=== PATIENT | male | born 1960 | race Caucasian/White ===

== ENCOUNTER 2017-05-29 07:45 | Inpatient (IN) | payer MEDICAID ==
[~2017-05-29] VITALS: Ht 182.9 cm; Wt 167.8 kg
[2017-05-29] VITALS (13 sets, daily range): BP systolic 148–187; BP diastolic 101–120; BMI 50.3
--- NOTE | ~2017-05-29 | DS ---
PATIENT:HEIDI FOSTER II :58 MEDICAL RECORD: [id number] DISCHARGE SUMMARY ADMISSION DATE: 05/29/17 DISCHARGE DATE: 05/31/17 DATE OF SERVICE: 05/31/2017 DIAGNOSES: 1. Congestive heart failure, chronic systolic dysfunction. 2. Cardiomyopathy, drug induced. 3. Hypertension. HOSPITAL COURSE: Mr. Foster presents with acute withdrawal from meth as well as shortness of breath and congestive heart failure and found to have an ejection fraction of 40% with mild dilated cardiomyopathy. His heart failure symptomatology cleared with IV Lasix. He was helped through his withdrawal with IV Haldol and IV Ativan. He had resolution of this. Discharged home with the addition of Coreg 25 mg b.i.d. to his medical regimen. We will follow up with [facility] in 1 month. TRANSINT:[id number] Voice Confirmation ID: [id number] DOCUMENT ID: [id number] RAFAEL MOCTEZUMA MD CC: [id number] DICTATION DATE: 05/31/17 1128 SPARKER AND PATCHER: 06/01/17 0356 DIS IN 05/31/17 [id number] [place] [address]
[2017-05-29 08:30] LABS: BASOPHILS 0.3 % (0-2); EOSINOPHILS 1.3 % (0-7); HEMATOCRIT 43.3 % (42.0-54.0); HEMOGLOBIN 14.2 g/dL (13.5-17.5); IMMATURE GRANULOCYTES 0.3 % (0-5); MCH 29.8 pg (26.0-34.0); MCHC 32.8 g/dL (31.0-37.0); MCV 90.8 fL (80.0-100.0); MEAN PLATELET VOLUME 11.4 fL (7.4-10.4); MONOCYTES 9.4 % (2-11); NEUTROPHILS 75.7 % (40-80); PLATELET COUNT 180 10x3/uL (130-400); RBC 4.77 10x6/uL (4.20-6.10); RDW 14.8 % (11.5-14.5); WBC 7.9 10x3/uL (4.8-10.8)
[2017-05-29 08:42] LABS: ALBUMIN 3.4 g/dL (3.4-5.0); ALKALINE PHOSPHATASE 83 U/L (46-116); ALT (SGPT) 100 U/L (10-68); BILIRUBIN - TOTAL 0.78 mg/dL (0.2-1.3); CALC OSMOLALITY 294 mosm/kg (275-300); CALCIUM 8.4 mg/dL (8.5-10.1); CARBON DIOXIDE 26.4 mmol/L (21.0-32.0); CHLORIDE - SERUM 105 mmol/L (98-107); CREATININE - SERUM 1.8 mg/dL (0.6-1.3); GLUCOSE 159 mg/dL (74-106); PROTEIN - SERUM 6.7 g/dL (6.4-8.2); SODIUM 141 mmol/L (136-145); UREA NITROGEN 44 mg/dL (7-18); eGFR NON AFRICAN AMERICAN 41 mL/min (90-120)
[2017-05-29 08:57] LABS: CKMB 19.3 U/L (0.0-3.6); PRO BNP 6593 pg/mL (0-125)
[2017-05-29 09:15] LABS: UDS - AMPHET POSITIVE QUAL (NEGATIVE); UDS - BARB NEGATIVE QUAL (NEGATIVE); UDS - BENZO NEGATIVE QUAL (NEGATIVE); UDS - COCAINE NEGATIVE QUAL (NEGATIVE); UDS - METH NEGATIVE QUAL (NEGATIVE); UDS - OPIATE NEGATIVE QUAL (NEGATIVE); UDS - PCP NEGATIVE QUAL (NEGATIVE); UDS - THC POSITIVE QUAL (NEGATIVE)
[2017-05-29 09:44] LABS: APPEARANCE SLT CLOUDY (CLEAR); BILIRUBIN NEGATIVE (NEGATIVE); COLOR YELLOW (YELLOW); GLUCOSE NEGATIVE (NEGATIVE); KETONE NEGATIVE (NEGATIVE); NITRITE NEGATIVE (NEGATIVE); PROTEIN 3+ mg/dL (NEGATIVE); UROBILINOGEN NORMAL (NORMAL)
[2017-05-29 09:45] LABS: AMORPHOUS SEDIMENT >1+ /lpf (NONE SEEN); BACTERIA MODERATE /hpf (NONE SEEN); EPITHELIAL CELLS 0-5 /hpf (0-5); GRANULAR CAST 0-5 /lpf (NONE SEEN); LEUKOCYTE ESTERASE TRACE (NEGATIVE); MUCUS <1+ /lpf (NONE SEEN); WHITE CELLS - URINE 0-5 /hpf (0-5)
--- NOTE | 2017-05-29 11:16 | NUR ---
TRANSFER FROM ER BY STRETCHER. CALL LIGHT IN REACH. WILL CONT. PLAN OF CARE.
--- NOTE | 2017-05-29 11:43 | NUR ---
RN CALLED ME TO THE ROOM TO ASSESS PT. PT THRASHING ABOUT IN BED AND SCREAMING. MARICRUZ ALARM AND BUILT IN BED ALARM ON. DR. MOCTEZUMA NOTIFIED AND ORDERS RECEIVED. ORDER RECEIVED TO TRANSFER TO ICU. HOUSE KIRSTEN NOTIFIED.
--- NOTE | 2017-05-29 12:00 | NUR ---
56 Y.O. MALE RECEIVED FROM Helpr. PATIENT IS OBTUNDED, COMBATIVE, AND RESTLESS. FLAILING ARMS ABOUT. PATIENT YELLS OUT AT TIMES, UNCOPREHENSIBLE SOUND. IV NOTED IN LEFT HAND WITH NS INFUSING. PATIENT HAS SNORING RESPIRATIONS AT TIMES. SR UP X4.
--- NOTE | 2017-05-29 12:13 | NUR ---
UNABLE TO OBTAIN HISTORY FROM PT. EVERYTIME A QUESTION IS ANSWERED, PT SCREAMS OUT. REPORT GIVEN TO ROSENDO IN ICU. AT PRESENT, PT IS QUIET DUE TO IV ATIVAN GIVEN. TRANSFERRED TO ICU.
--- NOTE | 2017-05-29 12:22 | NUR ---
TRANSFERED TO ICU BY BED.
--- NOTE | 2017-05-29 12:50 | NUR ---
DR. MOCTEZUMA HERE IN TO SEE PATIENT AND SPOKE WITH HIS FATHER. NEW ORDERS RECEIVED.
--- NOTE | 2017-05-29 13:06 | NUR ---
HALDOL GIVEN FOR COMBATIVENESS AND RESTLESSNESS.
--- NOTE | 2017-05-29 16:44 | NUR ---
PATIENT IS MORE ALERT AND COOPERATIVE. PATIENT DOES NOT REMEMBER WHAT HAPPENED OR HOW HE GOT HERE. PATIENT IS PLEASANT AND AGREES TO STAY IN THE BED.
--- NOTE | 2017-05-29 17:51 | NUR ---
PATIENT HAS MOTTLING NOTED IN R LOWER EXTREMTY. PATEINT DOES HAVE EQUAL PEDAL PULSES PRESENT. DR. GIRON CONTACTED AND NEW ORDERS RECEIVED.
[2017-05-29 19:15] LABS: ANION GAP 10.5 mmol/L (8-16); CALCIUM 8.6 mg/dL (8.5-10.1); CARBON DIOXIDE 30.9 mmol/L (21.0-32.0); CREATININE - SERUM 1.5 mg/dL (0.6-1.3); POTASSIUM - SERUM 3.4 mmol/L (3.5-5.1)
--- NOTE | 2017-05-29 19:15 | NUR ---
REPORT RECIEVED. ASSESSMENT COMPLETED. SEE FLOW SHEET FOR DETAILS. PT POSITIONED FOR COMFORT, WILL CONTINUE TO MONITOR.
--- NOTE | 2017-05-29 21:00 | NUR ---
FAMILY AT BEDSIDE, UPDATE GIVEN. PT ASKED FOR A DIET COKE. REVIEWED DIET ORDER AND GAVE HIM A DIET COKE. PT POSITIONED FOR COMFORT WILL CONTINUE TO MONITOR.
--- NOTE | 2017-05-29 23:00 | NUR ---
REASSESSMENT COMPLETED. PT POSITIONED FOR COMFORT WILL CONTINUE TO MONITIOR.
--- NOTE | 2017-05-29 23:15 | NUR ---
CALLED AND STARTED HOME MEDS FOR BP CURRENTLY AT 164/111.
[2017-05-30] VITALS (24 sets, daily range): BP systolic 111–179; BP diastolic 84–133; Ht 182.9 cm; Wt 167.8 kg
--- NOTE | 2017-05-30 01:00 | NUR ---
PT APPEARS TO BE SLEEPING. DENIES ANY NEEDS. WILL CONTINUE TO MONITOR.
--- NOTE | 2017-05-30 03:00 | NUR ---
REASSESSMENT COMPLETED. NO ACUTE CHANGES AT THIS TIME. PT POSITIONED FOR COMFORT, WILL CONTINUE TO MONITOR.
--- NOTE | 2017-05-30 05:00 | NUR ---
PT RESTING DENIES ANY NEEDS. DENIED A BATH. POSITIONED FOR COMFORT WILL CONTINUE TO MONITOR.
--- NOTE | 2017-05-30 07:00 | NUR ---
REC'D REPORT AND RESUMED CARE, AAO, VSS, DENIES PAIN, ASSESSMENT COMPLETE PER FLOWSHEET, CALL LIGHT IN REACH, NO NEEDS AT THIS TIME
--- NOTE | 2017-05-30 07:30 | NUR ---
BREAKFAST TRAY TO BEDSIDE, INDEPENDENT WITH SET UP AND EATING
--- NOTE | 2017-05-30 08:45 | NUR ---
AM MEDS GIVEN WITHOUT DIFFICULTY
--- NOTE | 2017-05-30 09:00 | NUR ---
FAMILY AT BEDSIDE, STATUS UPDATED, SISTER WORRIED THAT PATIENT WILL WANT TO LEAVE HOSPITAL BEFORE GIVEN FULL TREATMENT, NO SIGNS OF THIS AT THIS TIME
[2017-05-30 09:57] LABS: ANION GAP 8.8 mmol/L (8-16); CALCIUM 8.2 mg/dL (8.5-10.1); CARBON DIOXIDE 31.4 mmol/L (21.0-32.0); CREATININE - SERUM 1.4 mg/dL (0.6-1.3); MAGNESIUM - SERUM 1.8 mg/dL (1.8-2.4)
[2017-05-30 09:58] LABS: POTASSIUM - SERUM 4.2 mmol/L (3.5-5.1)
[2017-05-30 10:12] LABS: BASOPHILS 0.6 % (0-2); EOSINOPHILS 2.6 % (0-7); HEMATOCRIT 43.9 % (42.0-54.0); HEMOGLOBIN 14.1 g/dL (13.5-17.5); IMMATURE GRANULOCYTES 0.6 % (0-5); LYMPHOCYTES 15.5 % (15-50); MCH 29.4 pg (26.0-34.0); MCHC 32.1 g/dL (31.0-37.0); MCV 91.6 fL (80.0-100.0); MEAN PLATELET VOLUME 12.3 fL (7.4-10.4); MONOCYTES 9.8 % (2-11); NEUTROPHILS 70.9 % (40-80); PLATELET COUNT 171 10x3/uL (130-400); RBC 4.79 10x6/uL (4.20-6.10); RDW 15.2 % (11.5-14.5)
--- NOTE | 2017-05-30 10:22 | NUR ---
OOB TO CHAIR WITH MINIMAL ASSIST, DYSPNEA ON EXERTION
--- NOTE | 2017-05-30 11:19 | NUR ---
* Is the patient Alert and Oriented? Yes 0 * How many steps to enter\exit or inside your home? 2 0 * PCP ASPHALT COATER with Dr. Nathan 0 * Pharmacy [facility] in [place] 0 * Preadmission Environment Home Alone 0 * ADLs Independent 0 * List name and contact numbers for known caregivers / representatives who currently or will assist patient after discharge: Father - Eleno Presley [phone] 0 * Can the patient safely return to the preadmission environment? Yes 0 * Has this patient been hospitalized within the prior 30 days at any hospital? No Patient Name: HEIDI FOSTER Admission Status: ER Accout number: [id number] Admission Date: 05-29-2017 : 1960 Admission Diagnosis:SHORTNESS OF BREATH Attending: YOUNG MOCTEZUMA Current LOS: 1 Planned Disposition: Home Primary Insurance: MEDICAID [place] Discharge Planning Comments: CM met with patient to assess dc plans/needs. Patient states he lives alone and is independent with all ADL's & IADL's. He states his dad lives next door to him and will drive him home at discharge. He denies having any DME or home health services. At dc, he states he will return home. Discussed HH services - declines at this time. CM will follow & assist as needed. Asphalt Coater: Debby Leo
--- NOTE | 2017-05-30 11:29 | NUR ---
* Is the patient Alert and Oriented? Yes 0 * How many steps to enter\exit or inside your home? 2 0 * PCP STEWARDING SUPERVISOR with Dr. Nathan 0 * Pharmacy [facility] in [place] 0 * Preadmission Environment Home Alone 0 * ADLs Independent 0 * List name and contact numbers for known caregivers / representatives who currently or will assist patient after discharge: Father - Eleno Presley [phone] 0 * Can the patient safely return to the preadmission environment? Yes 0 * Has this patient been hospitalized within the prior 30 days at any hospital? No Patient Name: HEIDI FOSTER Admission Status: ER Accout number: [id number] Admission Date: 05-29-2017 : 1960 Admission Diagnosis:SHORTNESS OF BREATH Attending: YOUNG MOCTEZUMA Current LOS: 1 Planned Disposition: Home Primary Insurance: MEDICAID [place] Discharge Planning Comments: CM met with patient to assess dc plans/needs. Patient states he lives alone and is independent with all ADL's & IADL's. He states his dad lives next door to him and will drive him home at discharge. He denies having any DME or home health services. At dc, he states he will return home. Discussed HH services - declines at this time. CM will follow & assist as needed. Conference Concierge: Debby Leo
--- NOTE | 2017-05-30 12:00 | NUR ---
LUNCH TRYA TO BEDSIDE, INDEPENDENT WITH SET UP AND EATING
--- NOTE | 2017-05-30 13:30 | NUR ---
FEELING TIRED, BTB WITH STATNDBY ASSIST, SELF REPOSITIONS, CALL LIGHT IN REACH, VOICES NO NEEDS AT THIS TIME
--- NOTE | 2017-05-30 15:00 | NUR ---
SLEEPING WITH NO SIGNS OF DISTRESS, VSS, WILL CONTINUE WITH POC
--- NOTE | 2017-05-30 17:30 | NUR ---
BARLOW DC'D PER ORDER, BLOODY DRAINAGE TO BAG, IVF DC'D PER ORDER, SL, EATING DINNER WITH NO SIGNS OF DISTRESS, VSS
[2017-05-30] MEDS ORDERED: K-TAB10 MEQ PO (18:07)
[2017-05-30] MEDS ORDERED: LOPRESSOR25 MG PO (18:08)
[2017-05-30] MEDS ORDERED: FUROSEMIDE40 MG PO (18:09)
[2017-05-30] MEDS ORDERED: MUPIROCIN22 GM TOPICAL (18:10)
--- NOTE | 2017-05-30 19:30 | NUR ---
PT CONFUSED X3, OUT OF BED, UNSTADY GAIT, INCONTINENT. BATH GIVEN. LINEN AND GOWN CHANGED. ASSISTED TO BED. REORIENTED TO PLACE, TIME AND SITUATION. VERBALIZES UNDERSTANTDING AT THIS TIME. BED ALARM ON. CALL LIGHT IN REACH. BED IN LOW POSITIONED AND LOCKED. HOB UP. SIDE RAILS UP. WILL CONT TO MONITOR.
--- NOTE | 2017-05-30 20:10 | NUR ---
ASSISTED TO BSC. VOIDS WITHOUT DIFFIC. AYANA CARE PROVIDED. BACK IN BED. REPOSITIONED SELF IN BED. CALL LIGHT IN REACH. PROVIDED NURISHEMENT PER REQUEST.BST IN REACH. CPOC.
--- NOTE | 2017-05-30 21:00 | NUR ---
ASSISTED TO BSC. VOIDS WITHOUT DIFFIC. AYANA CARE PROVIDED. BACK TO BED. REPOSITIONED SELF IN BED. CALL LIGHT IN REACH. CPOC.
--- NOTE | 2017-05-30 23:00 | NUR ---
REASSESSMENT COMPLETED. SEE FLOW SHEETS FOR ALL FINDINGS. NO ACUTE SIGNS OF DISTRESS NOTED. VSS. CALL LIGHT IN REACH. CPOC.
[2017-05-31] VITALS (9 sets, daily range): BP systolic 120–168; BP diastolic 74–110
--- NOTE | 2017-05-31 01:25 | NUR ---
PT TO BSC. VOIDS WITOUT DIFFIC. ASSISTED BACK TO BED. REPOSITIONED SELF IN BED. VSS. CALL LIGHT IN REACH. BED ALARM ON. CPOC.
--- NOTE | 2017-05-31 03:00 | NUR ---
REASSESSMENT COMPLETED. SEE FLOW SHEETS FOR ALL FINDINGS. PT AROUSES EASILY WITH VOICES. NO SIGNS OF DISTRESS NOTED AT THIS TIME. VSS. CPOC.
--- NOTE | 2017-05-31 06:00 | NUR ---
NO VISITORS AT THIS TIME. PT UP TO BSC. VOIDS WITHOUT DIFFIC. ASSISTED BACK TO BED, CALL LIGHT IN REACH. CPOC.
--- NOTE | 2017-05-31 08:28 | NUR ---
PT AWAKE AND COOPERATIVE, UP TO BSC, STEADY GAIT. ATE 100% OF BREAKFAST AND TOOK AM MEDS W/O PROBLEMS. SR ON CM, BP 126/85 AT PRESENT. ALL CM EQUIPMENT ATTACHED AND ALARMS ON.
--- NOTE | 2017-05-31 11:34 | NUR ---
DR MOCTEZUMA HERE, DC INSTRUCTIONS GIVEN.
--- NOTE | 2017-05-31 13:52 | EC ---
PATIENT:HEIDI FOSTER II DATE OF SERVICE: 05/29/17 SEX: M MEDICAL RECORD: [id number] DATE OF : 58 LOCATION:[facility] D230 AGE OF PATIENT: 56 ADMISSION DATE: 05/29/17 REFERRING PHYSICIAN: INTERPRETING PHYSICIAN: RAFAEL ROLDAN MD ECHOCARDIOGRAM REPORT ECHO CHARGES 4 ECHO COMPLETE CLINICAL DIAGNOSIS: CHF ECHOCARDIOGRAPHIC MEASUREMENTS (adult normal given) AC root (d.<3.7cm) 3.5 cm LV Septum d (<1.2 cm> 1.8 cm Valve Excursion 2.3 cm LV Septum (systole) 1.9 cm Left Atria (s.<4.0cm> 3.9 cm LVPW d(<1.2cm) 1.6 cm RV (d.<2.3cm) 3.7 cm LVPW (sytole) 2.3 cm LV diastole(<5.6CM) 6.4 cm MV E-F(>70mm/sec) cm LV systole 4.5 cm LVOT Diameter 2.3 cm MV exc.(>10mm) cm Est.ejection fraction (50-75%) % Pericardial Effusion N DOPPLER: LVIT cm/sec A cm/sec E cm/sec LA cm/sec RVSP 30.3 mmHg LVOT cm/sec AOP1/2T m/s Asc. Ao cm/sec RVOT 91.0 cm/sec RA cm/sec PA 107 cm/sec AV Gradient Peak mmHg AV Mean mmHg AV Area cm MV Gradient Peak mmHg MV Mean mmHg MV Area cm COMMENTS: Assistant Director Of Financial Aid: Doroteo MIMS SULLIVAN Chief Executive Or Managing Director: 1 Dr. Roldan TAPE# PACS DATE OF SERVICE: 05/29/2017 Echocardiogram Report FINDINGS: 1. Left ventricular chamber size is within normal limits. Left ventricular systolic function is only mildly depressed, ejection fraction in the 40% range. 2. Left atrium, right atrium, and right ventricle chamber sizes are within normal limits. 3. Valvular structures have normal structure and motion. ECHOCARDIOGRAM REPORT [id number] HEIDI FOSTER II 4. Doppler interrogation reveals no significant valvular insufficiency or stenosis, and pulmonary systolic pressure is normal estimated 30 mmHg. 4. No evidence of pericardial effusion or left ventricular thrombus. TRANSINT:[id number] Voice Confirmation ID: [id number] DOCUMENT ID: [id number] RAFAEL ROLDAN MD at 1352 CC: [id number] DICTATION DATE: 05/30/17 1251 MANAGER [place]: 05/30/17 1846 DIS IN 05/31/17 [id number] [place] [address]
--- NOTE | 2017-05-31 13:52 | HP ---
PATIENT: HEIDI FOSTER II MEDICAL RECORD: [id number] ACCOUNT: [id number] LOCATION:[facility] [id number] : 58 ADMISSION DATE: 05/29/17 HISTORY AND PHYSICAL EXAMINATION DATE OF SERVICE: 05/29/2017 DIAGNOSES: 1. Shortness of breath. 2. Pulmonary edema. 3. Acute drug use, methamphetamine and marijuana. HISTORY OF PRESENT ILLNESS: This is a gentleman who presents with shortness of breath. Chest x-ray is compatible with congestive heart failure. He has marked cardiomegaly on the chest x-ray as well. He is coming off acute meth and marijuana use and is quite agitated as well as confused and going through this withdrawal. He has no cardiac history in the past. He has no chest pain, no chest discomfort. His BMP is abnormal with a BUN of 44, creatinine of 1.8. Troponin is elevated at 0.07, BNP is as well elevated at 6600. PHYSICAL EXAMINATION: GENERAL APPEARANCE: Well-nourished, well-developed, appears stated age. Level of distress, comfortable. PSYCHIATRIC: Mental status, alert, normal affect. Orientation, oriented to time, place and person. EYES: Lids and conjunctiva, noninjected. No discharge, no pallor. ENT: Lips, teeth, gums, normal dentition. Oropharynx, no cyanosis, no pallor. NECK: Carotid arteries, bilateral normal upstroke, no bruits, no thrills. JUGULAR VEINS: No jugular venous pressure or distention. CERVICAL LYMPH NODES: Nontender, nonenlarged. THYROID: Not enlarged. Nontender. No nodules. LUNGS: Respiratory effort, unlabored. CHEST: Normal curvature. No thoracic deformity. No chest wall tenderness. Percussion, resonant. Auscultation, clear. No wheezes, no rales, no rhonchi. CARDIOVASCULAR: Precordial exam, nondisplaced. No heaves or pericardial thrills. Rate and rhythm, regular. Heart sounds, normal S1, normal S2. No S3, no gallop, no rub. Systolic murmur, not heard. Diastolic murmur, not heard. EXTREMITIES: No cyanosis, no edema. Peripheral pulses, full and equal in all extremities, except as noted. No bruits appreciated. ABDOMEN: Soft, nondistended. Normal aorta. No bruit. Nontender. No masses. Liver, nontender, no hepatomegaly. Spleen, nontender, no splenomegaly. MUSCULOSKELETAL: No joint tenderness. No joint swelling. No erythema. NEUROLOGICAL: Normal gait, normal strength, normal tone. SKIN: Warm and dry. OVERALL IMPRESSION: Pulmonary edema, cardiomegaly, most likely drug-induced cardiomyopathy, we will get an echocardiogram, treat him through the acute withdrawal phase and then start cardiovascular medications after this as tolerated. TRANSINT:[id number] Voice Confirmation ID: [id number] DOCUMENT ID: [id number] HISTORY AND PHYSICAL [id number] HEIDI FOSTER II, JEFFREY MD at 1352 CC: [id number] DICTATION DATE: 05/29/17 1233 HEALTH DATA ADMINISTRATOR: 05/29/17 1300 DIS IN 05/31/17 [id number] [place] [address]
== END 2017-05-31 13:30 | disposition home or self-care (01) | DRG 918 ==
LOC: D.ER 07:45 → D.OPS 07:45 → D.M2 10:36 → EDSTATUS 10:36 → D.OPS 11:38 → D.ICU 11:39
PROVIDERS: Emergency Medicine; Internal Medicine Cardiovascular Disease; ADMIT Internal Medicine Interventional Cardiology
DX: T43.621A Poisoning by amphetamines, accidental (unintentional), initial encounter (principal); I42.7 Cardiomyopathy due to drug and external agent; F15.93 Other stimulant use, unspecified with withdrawal; I42.0 Dilated cardiomyopathy; I51.7 Cardiomegaly; F12.288 Cannabis dependence with other cannabis-induced disorder; T40.7X1A Poisoning by cannabis (derivatives), accidental (unintentional), initial encounter